=== PATIENT | female | born 1990 | race African-American/Black ===

== ENCOUNTER 2024-01-08 11:35 | Day surgery (SDC) | payer OTHER ==
[2024-01-03 11:29] VITALS: BMI 25.0
[2024-01-08 15:09] VITALS: PULSE 84; TEMP 97.5
[2024-01-08 15:13] VITALS: BP 116/67; RESP 17
== END 2024-01-08 13:00 | disposition home or self-care (01) ==
LOC: FASU-ENDO 11:35
PROVIDERS: ATTEND Internal Medicine Gastroenterology
PROC: 0DB78ZX Excision of Stomach, Pylorus, Via Natural or Artificial Opening Endoscopic, Diagnostic (ICD-10-PCS; 2024-01-08)
PROC: 0DB68ZX Excision of Stomach, Via Natural or Artificial Opening Endoscopic, Diagnostic (ICD-10-PCS; 2024-01-08)
PROC: 0DB48ZX Excision of Esophagogastric Junction, Via Natural or Artificial Opening Endoscopic, Diagnostic (ICD-10-PCS; 2024-01-08)
PROC: 0DB98ZX Excision of Duodenum, Via Natural or Artificial Opening Endoscopic, Diagnostic (ICD-10-PCS; principal; 2024-01-08 12:14)
DX: K21.00 Gastro-esophageal reflux disease with esophagitis, without bleeding (principal); K29.50 Unspecified chronic gastritis without bleeding
CPT/HCPCS: 81025; 88305-TC; 88342-TC